=== PATIENT | female | born 1975 | race Hispanic/Latino ===

== ENCOUNTER 2023-08-10 10:15 | Emergency (ER) | payer BC, MEDICARE, OTHER ==
[~2023-08-10] VITALS: Ht 154.9 cm; Wt 77.1 kg
[2023-08-10 10:29] VITALS: BP 125/76; PULSE 78; RESP 18
[2023-08-10] MEDS ORDERED: IBUP-2077 PO (12:17)
== END 2023-08-10 12:45 | disposition home or self-care (01) ==
LOC: EDH 10:15
DX: S66.811A Strain of other specified muscles, fascia and tendons at wrist and hand level, right hand, initial encounter (principal); Z90.710 Acquired absence of both cervix and uterus; Z98.890 Other specified postprocedural states; X58.XXXA Exposure to other specified factors, initial encounter; Y93.89 Activity, other specified; Y92.89 Other specified places as the place of occurrence of the external cause; Y99.8 Other external cause status
CPT/HCPCS: 99282

== ENCOUNTER 2024-06-27 12:07 | Emergency (ER) | payer BC, OTHER ==
[~2024-06-27] VITALS: Ht 154.9 cm; Wt 65.8 kg
[~2024-06-27 12:07] MED LIST: IBUP-2077 PO
[2024-06-27 14:15] LABS: APPEARANCE,URINE CLOUDY (CLEAR); BILIRUBIN,URINE NEGATIVE (NEGATIVE); COLOR,URINE YELLOW (YELLOW); GLUCOSE, URINE (UA) NEGATIVE (NEGATIVE); KETONES,URINE NEGATIVE (NEGATIVE); LEUKOCYTE ESTERASE ,URINE 500 Leu/uL (NEGATIVE); NITRATE,URINE 2+ (NEGATIVE); OCCULT BLOOD,URINE SMALL (NEGATIVE); PROTEIN,URINE 20 mg/dL (NEGATIVE); UROBILINOGEN,URINE 0.2 mg/dL (0.2-1.0)
[2024-06-27 14:20] LABS: ADD UA MICROSCOPIC YES
[2024-06-27 14:22] LABS: BACTERIA,URINE RARE /HPF (None Seen); MUCUS,URINE RARE LPF (None Seen); SQUAMOUS EPITHELIAL CELL,UR FEW /HPF (0-2); WBC,URINE 26-50 /HPF (0-1)
[2024-06-27] MEDS: cefTRIAXone 1G VIAL IM ONE (14:58)
--- NOTE | 2024-06-27 15:42 | HMCIMG ---
HIP UNILAT 4VW RIGHT REASON: hip pain. COMPARISON: None TECHNIQUE: 3 images of right hip were obtained. FINDINGS: Degenerative changes are seen. There is no acute displaced fracture or dislocation. IMPRESSION: Findings as described above.
--- NOTE | 2024-06-27 15:50 | ERN ---
General Chief Complaint: Painful Urination Stated Complaint: PAINFUL URINATION Time Seen by MD: 12:12 Time Seen by Midlevel: 12:12 Source: patient History of Present Illness Initial Comments Patient is a 48-year-old female with no significant past medical history presenting with two complaints. Patient states her primary concern is her right hip pain that has been ongoing for the last couple of weeks. Patient believes she may have strained it at work. Proximally two weeks ago she sustained a mechanical ground level fall and was evaluated at a local urgent care who discharged home without any imaging done. Since then her pain has continued to increase to the point where she is unable to walk. Her 2nd concern is that she may have a urinary tract infection. She has been having dysuria since yesterday. She specifically denies any nausea, vomiting, fever, chills, or any other symptoms at this time. Allergies: Coded Allergies: No Known Drug Allergies (Unverified Allergy, Unknown, 08/10/23) Home Meds Active Scripts Methocarbamol (Robaxin) 750 Mg Tab, 750 MG PO BID for 5 Days, #10 TAB Prov:FILIBERTO BARRAGAN 06/27/24 Nitrofurantoin/Nitrofuran Mac (Macrobid) 100 Mg Cap, 100 MG PO BID for 5 Days, #10 CAP Prov:FILIBERTO BARRAGAN 06/27/24 Ketorolac Tromethamine (Ketorolac Tromethamine) 10 Mg Tablet, 10 MG PO BID for 5 Days, #10 TAB Prov:FILIBERTO BARRAGAN 06/27/24 Ibuprofen (Ibuprofen 800 mg Tab) 800 Mg Tab, 800 MG PO TID PRN for PAIN, #30 TAB Prov:CHRISTIANO TRAVIS Jr.P 08/10/23 Past Medical History Past Medical History: No Pertinent History Past Surgical History: Surgical History Other: SPINAL SURGERY Family History Family History: DM, HTN Social History Social History: ETOH, Lives with family Female( History) History: Not Applicable ROS Dictation CONSTITUTIONAL: Negative except for HPI HEAD/FACE: Negative except for HPI EENT: Negative except for HPI RESPIRATORY: Negative except for HPI GASTROINTESTINAL/ABDOMINAL: Negative except for HPI GENITOURINARY: Negative except for HPI MUSCULOSKELETAL: Negative except for HPI INTEGUMENTARY: Negative except for HPI NEUROLOGICAL/PSYCH: Negative except for HPI HEMATOLOGIC/LYMPHATIC: Negative except for HPI All Systems Negative, Except as noted above. 13 point review of systems assessed and all negative except for above. Physical Exam Physical Exam Dictation Vital Signs reviewed General Appearance: Alert, oriented x 3, no acute distress, well developed, nourished. Head and Face: non-traumatic. Eyes: PERRL, pink conjunctivas, eyelid no trauma, anterior chamber with arcus senilis. Ears: Pinnas intact and no signs of trauma or erythema ear canals clear and no discharge TM no erythema Nose: No discharge, no bleeding. Oropharynx: Mouth normal, tongue pink, pharynx clear,no erythema, tonsils no exudates, no abscesses noted, mucous membrane moist Neck: Supple, non-tender, no thyromegaly, no masses, no JVD, no bruits Breast:Deferred Chest:No tenderness, no crepitus, no paradoxical movement, no retractions Lungs:Clear, well-ventilated, symmetric, no rales, no wheezing, no rhonchi, no stridor, good breath sounds bilaterally Heart: Regular rate, regular rhythm, no murmur, no gallops Vascular: no peripheral edema, Abdomen: Soft, positive bowel sounds, nondistended, no guarding, nontender, no rebound, no masses no hepatomegaly, no splenomegaly, no Etienne's sign, no hernias. Rectal: Deferred Genital: Deferred Neurological: Normal speech, motor function intact, sensory function intact Musculoskeletal: Neck nontender, full range of motion, back nontender, full range of motion, Extremities: Mild tenderness over the right lateral hip, patient has full range motion of the right hip, right lower extremity is neurovascularly intact. Skin: Color pink, dry, no turgor, no rash, no lacerations, no abrasions, no co ntusions. Lymphatic: Deferred Results Laboratory and Microbiology Lab and Micro Result Laboratory Tests Test 06/27/24 13:52 Urine Color YELLOW (YELLOW) Urine Appearance CLOUDY (CLEAR) H Urine pH 5.0 (5.0-8.0) Urine Specific [place] 1.024 (1.001-1.031) Urine Protein 20 mg/dL (NEGATIVE) H Urine Glucose (UA) NEGATIVE mg/dL (NEGATIVE) Urine Ketones NEGATIVE mg/dL (NEGATIVE) Urine Occult Blood SMALL (NEGATIVE) H Urine Nitrate 2+ (NEGATIVE) H Urine Bilirubin NEGATIVE mg/dL (NEGATIVE) Urine Urobilinogen 0.2 mg/dL (0.2-1.0) Urine Leukocyte Esterase 500 Henrik/uL (NEGATIVE) H Urine RBC 6-10 /HPF (0-1) H Urine WBC 26-50 /HPF (0-1) H Urine Squamous Epithelial Cells FEW /HPF (0-2) Urine Bacteria RARE /HPF (None Seen) Labs Reviewed?: Yes MDM MDM: Differential diagnosis: Hip fracture, hip contusion, urinary tract infection There are no social concerns with this patient. Prescription drug management Prescriptions will include: Robaxin, ketorolac, and Macrobid Medical management and examination interpretation discussions were had by me with other qualified healthcare professionals as indicated for the patient's care. ED Course Orders Procedure Category Date Status Time Urinalysis Profile LAB 06/27/24 Complete 12:17 Culture Urine SEPIDEH 06/27/24 In Process 14:20 Ceftriaxone 1g Vial PHA 06/27/24 Complete (Rocephine 1g Inj) 15:00 Orphenadrine Citrate PHA 06/27/24 Complete (Norflex) 15:30 Ketorolac PHA 06/27/24 Complete Tromethamine 30mg/Ml 15:30 Hip Unilat 4vw Right RAD 06/27/24 Resulted 15:04 Current Medications Medications (Trade) Dose Ordered Sig/Kelly Route PRN Reason Start Time Stop Time Status Last Admin Dose Admin Ceftriaxone Sodium (ROCEphine 1G INJ) 1 gm ONCE ONCE IM 06/27/24 15:00 06/27/24 15:01 DC 06/27/24 14:58 Ketorolac Tromethamine (toRADol) 30 mg ONCE ONCE IM 06/27/24 15:30 06/27/24 15:31 DC 06/27/24 16:05 Orphenadrine Citrate (Norflex) 60 mg ONCE ONCE IM 06/27/24 15:30 06/27/24 15:31 DC 06/27/24 16:04 Vital Signs Date Time Temp Pulse Resp B/P (MAP) Pulse Ox O2 Delivery O2 Flow Rate FiO2 06/27/24 16:06 97.9 65 18 128/68 99 Room Air* 0 21 06/27/24 14:35 97.9 68 18 135/72 99 Room Air* 0 21 06/27/24 12:40 97.0 68 18 140/76 99 Room Air DX & DISP Disposition: Discharge Departure Impression: Primary Impression: Right hip pain Additional Impression: Urinary tract infection Condition: Stable Scripts Methocarbamol (Robaxin) 750 Mg Tab 750 MG PO BID for 5 Days, #10 TAB Prov: FILIBERTO BARRAGAN 06/27/24 Nitrofurantoin/Nitrofuran Mac (Macrobid) 100 Mg Cap 100 MG PO BID for 5 Days, #10 CAP Prov: FILIBERTO BARRAGAN 06/27/24 Ketorolac Tromethamine (Ketorolac Tromethamine) 10 Mg Tablet 10 MG PO BID for 5 Days, #10 TAB Prov: FILIBERTO BARRAGAN 06/27/24 Additional Instructions: Your right hip x-ray is negative for any acute fracture. Have given you a follow up to an orthopedic surgeon for possible outpatient MRI. Your urine is consistent with infection. I have prescribed you Macrobid. Please take your antibiotics as prescribed. I am also sending you home with a prescription for Robaxin which is a muscle relaxer and Toradol for pain. Follow up with your PCP in 2-3 days for repeat evaluation. Return to the ER for any new or worsening symptoms Referrals: SELF,REFERRAL (PCP) GUILLERMO FLORES MD Time of Disposition: 15:52 I have reviewed the case, and I agree with, Diagnosis and Plan I performed the substantive portion of the visit. I have reviewed and personally made and approve the management plan that is documented in the note by myself or the FIDELINA. I acknowledge for responsibility for the patient's management plan. FILIBERTO BARRAGAN Jun 27, 2024 15:50
[2024-06-27] MEDS ORDERED: METH-662 PO (15:55)
[2024-06-27] MEDS ORDERED: KETO10TA2 PO (15:55)
[2024-06-27] MEDS ORDERED: MACR100 PO (15:55)
[2024-06-27] MEDS: ORPHENADRINE 60MG/2ML IM ONE (16:04)
[2024-06-27] MEDS: ketOROlac 30MG VIAL (30MG/ML) IM ONE (16:05)
[2024-06-27 16:06] VITALS: BP 128/68; PULSE 65; RESP 18; TEMP 97.9; O2SAT 99
== END 2024-06-27 16:13 | disposition home or self-care (01) ==
LOC: EDH 12:07
DX: M25.551 Pain in right hip (principal); N39.0 Urinary tract infection, site not specified; Z79.899 Other long term (current) drug therapy; Z98.890 Other specified postprocedural states
CPT/HCPCS: 99284; 87086 ×2; 87186; 81001; 73503; 96372 ×3; J0696; J1885; J2360

== ENCOUNTER 2024-07-25 18:44 | Emergency (ER) | payer BC ==
[~2024-07-25] VITALS: Ht 154.9 cm; Wt 65.8 kg
[~2024-07-25 18:44] MED LIST changes: +KETO10TA2 PO; +MACR100 PO; +METH-662 PO
[2024-07-25] MEDS ORDERED: FAMC500T8 PO (18:50)
[2024-07-25 18:51] VITALS: BP 117/73; PULSE 91; RESP 16; TEMP 98.6; O2SAT 97
--- NOTE | 2024-07-25 18:51 | ERN ---
ED Note History of Present Illness Stated Complaint: HPV Chief Complaint: Other Problems Time Seen by MD: 18:46 Dictation: PATIENT IS A 48-YEAR-OLD FEMALE COMING IN TODAY WITH COMPLAINTS OF BURNING PERINEAL AREA AND LESION SHE HAS HAD FOR SEVERAL DAYS. SHE STATES SHE HAS A HISTORY OF GENITAL HERPES HOWEVER RAN OUT OF HER AND AND DOES NOT HAVE A LOCAL DOCTOR. NO FEVER NO CHILLS NO NAUSEA VOMITING. STATES HER PARTNER HAS A SAME DIAGNOSES. Allergies: Coded Allergies: No Known Drug Allergies (Unverified Allergy, Unknown, 08/10/23) Home Meds Active Scripts Famciclovir (Famciclovir) 500 Mg Tablet, 500 MG PO TID for 7 Days, #21 TAB Prov:MICHAEL DIAZ BOLT MACHINE OPERATOR 07/25/24 Methocarbamol (Robaxin) 750 Mg Tab, 750 MG PO BID for 5 Days, #10 TAB Prov:FILIBERTO BARRAGAN 06/27/24 Nitrofurantoin/Nitrofuran Mac (Macrobid) 100 Mg Cap, 100 MG PO BID for 5 Days, #10 CAP Prov:FILIBERTO BARRAGAN 06/27/24 Ketorolac Tromethamine (Ketorolac Tromethamine) 10 Mg Tablet, 10 MG PO BID for 5 Days, #10 TAB Prov:FILIBERTO BARRAGAN 06/27/24 Ibuprofen (Ibuprofen 800 mg Tab) 800 Mg Tab, 800 MG PO TID PRN for PAIN, #30 TAB Prov:CHRISTIANO TRAVIS Jr. LOGISTICS COORDINATOR 08/10/23 Past Medical History Past Medical History: No Pertinent History, Other (GENITAL HERPES) Surgical History: Surgical History Other: SPINAL SURGERY Family History: DM, HTN Social History: ETOH, Lives with family History: Not Applicable RN Note Reviewed/Agreed w/PFSH: Yes Review of System Dictation CONSTITUTIONAL: NEGATIVE EXCEPT FOR HPI HEAD/FACE: NEGATIVE EXCEPT FOR HPI EENT: NEGATIVE EXCEPT FOR HPI RESPIRATORY: NEGATIVE EXCEPT FOR HPI GASTROINTESTINAL/ABDOMINAL: NEGATIVE EXCEPT FOR HPI GENITOURINARY: NEGATIVE EXCEPT FOR HPI BURNING LESIONS MUSCULOSKELETAL: NEGATIVE EXCEPT FOR HPI INTEGUMENTARY: NEGATIVE EXCEPT FOR HPI NEUROLOGICAL/PSYCH: NEGATIVE EXCEPT FOR HPI HEMATOLOGIC/LYMPHATIC: NEGATIVE EXCEPT FOR HPI ALL SYSTEMS NEGATIVE, EXCEPT NOTED ABOVE. 13 POINT REVIEW OF SYSTEMS ASSESSED AND ALL NEGATIVE EXCEPT FOR ABOVE. Initial Vital Sign VS Vital Signs Date Time Temp Pulse Resp B/P (MAP) Pulse Ox O2 Delivery O2 Flow Rate FiO2 07/25/24 18:47 98.6 97 16 117/73 97 Room Air 0 07/25/24 18:51 21 Physical Exam Dictation VITAL SIGNS REVIEWED GENERAL APPEARANCE: ALERT, ORIENTED X 3, NO ACUTE DISTRESS, WELL DEVELOPED, NOURISHED. HEAD AND FACE: NON-TRAUMATIC. EYES: PERRL, PINK CONJUNCTIVAS, EYELID NO TRAUMA, ANTERIOR CHAMBER WITH ARCUS SENILIS. EARS: PINNAS INTACT AND NO SIGNS OF TRAUMA OR ERYTHEMA EAR CANALS CLEAR AND NO DISCHARGE TM NO ERYTHEMA NOSE: NO DISCHARGE, NO BLEEDING. OROPHARYNX: MOUTH NORMAL, TONGUE PINK, PHARYNX CLEAR,NO ERYTHEMA, TONSILS NO EXUDATES, NO ABSCESSES NOTED, MUCOUS MEMBRANE MOIST NECK: SUPPLE, NON-TENDER, NO THYROMEGALY, NO MASSES, NO JVD, NO BRUITS BREAST:DEFERRED CHEST:NO TENDERNESS, NO CREPITUS, NO PARADOXICAL MOVEMENT, NO RETRACTIONS LUNGS:CLEAR, WELL-VENTILATED, SYMMETRIC, NO RALES, NO WHEEZING, NO RHONCHI, NO STRIDOR, GOOD BREATH SOUNDS BILATERALLY HEART: REGULAR RATE, REGULAR RHYTHM, NO MURMUR, NO GALLOPS VASCULAR: NO PERIPHERAL EDEMA, ABDOMEN: SOFT, POSITIVE BOWEL SOUNDS, NONDISTENDED, NO GUARDING, NONTENDER, NO REBOUND, NO MASSES NO HEPATOMEGALY, NO SPLENOMEGALY, NO DOTY'S SIGN, NO HERNIAS. RECTAL: DEFERRED GENITAL: DEFERRED EXAMINATION DEFERRED WE WILL TREAT PATIENT EMPIRICALLY PACED ON HER HISTORY AND HER EMPTY PILL BOTTLE NEUROLOGICAL: NORMAL SPEECH, MOTOR FUNCTION INTACT, SENSORY FUNCTION INTACT MUSCULOSKELETAL: NECK NONTENDER, FULL RANGE OF MOTION, BACK NONTENDER, FULL RANGE OF MOTION, EXTREMITIES: NONTENDER, FULL RANGE OF MOTION SKIN: COLOR PINK, DRY, NO TURGOR, NO RASH, NO LACERATIONS, NO ABRASIONS, NO CONTUSIONS. LYMPHATIC: DEFERRED Results (Laboratory/Radiology) Labs Reviewed?: Yes ED Course ED Course Vital Signs Date Time Temp Pulse Resp B/P (MAP) Pulse Ox O2 Delivery O2 Flow Rate FiO2 07/25/24 18:51 98.6 91 16 117/73 97 Room Air* 0 21 07/25/24 18:47 98.6 97 16 117/73 97 Room Air 0 EIGHTEEN 50, NO LABS OR X-RAYS INDICATED. WE WILL TREAT PATIENT EMPIRICALLY FOR ACUTE GENITAL HERPES FLARE Medical Decision Making MDM MEDICAL DISCHARGE MAKING BASED ON EMPIRIC TREATMENT FOR GENITAL HERPES WE WILL BE PRESCRIBED FAMCICLOVIR GIVEN A LIST OF LOCAL DOCTORS TO FOLLOW UP. DX & DISP Disposition: Discharge Departure Impression: Primary Impression: Genital herpes Additional Impression: Encounter for medication refill Condition: Stable Scripts Famciclovir (Famciclovir) 500 Mg Tablet 500 MG PO TID for 7 Days, #21 TAB Prov: MICHAEL DIAZ BOLT MACHINE OPERATOR 07/25/24 Additional Instructions: FOLLOW-UP WITH PRIMARY CARE PROVIDER IN 1 TO 2 DAYS. TAKE MEDICATIONS DIRECTED HERE IN THE EMERGENCY ROOM. OKAY TO CONTINUE HOME MEDICATIONS UNLESS OTHERWISE DISCUSSED DURING YOUR VISIT IN THE EMERGENCY ROOM TODAY. RETURN TO YOUR NEAREST EMERGENCY ROOM IF SYMPTOMS WORSEN OR IF THERE IS NO IMPROVEMENT. CALL 911 IF YOU NEED IMMEDIATE ASSISTANCE. TAKE TYLENOL OR MOTRIN [id number] NEEDED AND IF NO CONTRAINDICATIONS ARE PRESENT. INCREASE ORAL HYDRATION. A WOUND CULTURE OR URINE CULTURE WAS ORDERED HERE IN THE EMERGENCY ROOM DEPARTMENT PLEASE FOLLOW-UP WITH PRIMARY CARE PROVIDER AND ADVISE THEM TO GET REPEAT PORTS FROM OUR FACILITY. IF YOU HAD ANY MIKAEL WRAP/SPLINTS THAT WERE APPLIED HERE, PLEASE DO NOT REMOVE THEM UNTIL YOU SEE YOUR PRIMARY CARE OR SPECIALTY. TAKE FAMCICLOVIR DIRECTED UNTIL GONE. , FOLLOW UP WITH YOUR DOCTOR OR ONE OF THE DOCTORS ON THE LIST PROVIDED YOU IN THE NEXT 2-3 DAYS. Referrals: SELF,REFERRAL (PCP) Time of Disposition: 18:49 I have reviewed the case, and I agree with, Diagnosis and Plan ATTESTATION BY PHYSICIAN I PERFORMED THE SUBSTANTIVE PORTION OF THE VISIT. I HAVE REVIEWED AND PERSONALLY MADE AND APPROVED THE MANAGEMENT PLAN THAT IS DOCUMENTED IN THE NOTE BY MYSELF FOR THE A PP. I ACKNOWLEDGED FOR RESPONSIBILITY FOR THE PATIENT'S MANAGEMENT PLAN. MICHAEL DIAZ NP Jul 25, 2024 18:51 MELLY SILVA MD Jul 27, 2024 18:53
== END 2024-07-25 19:11 | disposition home or self-care (01) ==
LOC: EDH 18:44
DX: A60.09 Herpesviral infection of other urogenital tract (principal); Z76.0 Encounter for issue of repeat prescription; Z79.624 Long term (current) use of inhibitors of nucleotide synthesis
CPT/HCPCS: 99281

== ENCOUNTER 2024-07-30 23:00 | Emergency (ER) | payer BC ==
[~2024-07-30] VITALS: Ht 154.9 cm; Wt 66.7 kg
[~2024-07-30 23:00] MED LIST changes: +FAMC500T8 PO
--- NOTE | 2024-07-30 23:02 | NUR ---
UA CUP PROVIDED
[2024-07-30 23:37] LABS: APPEARANCE,URINE CLOUDY (CLEAR); BILIRUBIN,URINE NEGATIVE (NEGATIVE); COLOR,URINE YELLOW (YELLOW); GLUCOSE, URINE (UA) NEGATIVE (NEGATIVE); KETONES,URINE NEGATIVE (NEGATIVE); LEUKOCYTE ESTERASE ,URINE 500 Leu/uL (NEGATIVE); NITRATE,URINE NEGATIVE (NEGATIVE); OCCULT BLOOD,URINE SMALL (NEGATIVE); PH,URINE 5.5 (5.0-8.0); PROTEIN,URINE 70 mg/dL (NEGATIVE); UROBILINOGEN,URINE 0.2 mg/dL (0.2-1.0)
[2024-07-30 23:41] LABS: ADD UA MICROSCOPIC YES
[2024-07-30 23:42] LABS: MUCUS,URINE RARE LPF (None Seen); RBC,URINE 26-50 /HPF (0-1); SQUAMOUS EPITHELIAL CELL,UR MOD /HPF (0-2); WBC,URINE TNTC /HPF (0-1)
[2024-07-30] MEDS ORDERED: NITR100C4 PO (23:51)
[2024-07-30] MEDS ORDERED: VALA500T42 PO (23:51)
--- NOTE | 2024-07-30 23:52 | ERN ---
ED Note History of Present Illness Stated Complaint: BURNING WITH URINATION, HERPES " FLARE" Chief Complaint: Multiple Complaints Time Seen by MD: 23:09 Time Seen by Midlevel: 23:09 Dictation: Patient is a 48-year-old female with a history of genital herpes, who presents to the emergency department with complaints of burning urination onset two days ago, patient also reports she is having a herpes flare-up. Patient has a history of general herpes and states her flare ups usually treated with a valacyclovir. Patient denies any vaginal bleeding or discharge. Denies any fevers. Allergies: Coded Allergies: No Known Drug Allergies (Unverified Allergy, Unknown, 08/10/23) Home Meds Active Scripts Cephalexin Monohydrate (Keflex) 500 Mg Cap, 500 MG PO BID for 7 Days, #28 CAP Prov:DOUGLAS GONSALEZ [facility] 07/31/24 Valacyclovir HCl (Valacyclovir) 500 Mg Tablet, 500 MG PO BID for 3 Days, #6 TAB Prov:DOUGLAS GONSALEZ [facility] 07/30/24 Famciclovir (Famciclovir) 500 Mg Tablet, 500 MG PO TID for 7 Days, #21 TAB Prov:MICHAEL DIAZ NP 07/25/24 Methocarbamol (Robaxin) 750 Mg Tab, 750 MG PO BID for 5 Days, #10 TAB Prov:FILIBERTO BARRAGAN 06/27/24 Nitrofurantoin/Nitrofuran Mac (Macrobid) 100 Mg Cap, 100 MG PO BID for 5 Days, #10 CAP Prov:FILIBERTO BARRAGAN 06/27/24 Ketorolac Tromethamine (Ketorolac Tromethamine) 10 Mg Tablet, 10 MG PO BID for 5 Days, #10 TAB Prov:FILIBERTO BARRAGAN 06/27/24 Ibuprofen (Ibuprofen 800 mg Tab) 800 Mg Tab, 800 MG PO TID PRN for PAIN, #30 TAB Prov:CHRISTIANO TRAVIS Jr. [facility] 08/10/23 Discontinued Scripts Nitrofurantoin Monohyd/M-Cryst (Macrobid 100 mg Capsule) 100 Mg Capsule, 1 CAP PO BID for 5 Days, #10 CAP 0 Refills Prov:DOUGLAS GONSALEZ [facility] 07/30/24 Past Medical History Past Medical History: Other Additional Past Medical Hx: HPV Surgical History: Hysterectomy, Surgical History Other: SPINAL SURGERY Family History: DM, HTN Social History: ETOH, Lives with family History: Not Applicable RN Note Reviewed/Agreed w/PFSH: Yes Review of System Dictation Constitutional: Negative for fever,chills, and weight loss Eyes: Negative for injury, pain,redness, and discharge ENT: Negative for injury,pain or swelling Cardiovascular: Negative for chest pain, palpitations, and edema Respiratory: Negative for shortness of breath, cough, and wheezing, Abdomen/GI: Negative for abdominal pain, nausea, vomiting, diarrhea, and constipation Back: Negative for injury and pain : Positive for burning urination MS/Extremity: Negative for injury and deformity Skin: Negative for rash, and discoloration Neuro: Negative for headache, weakness, numbness, tingling, and seizure Psych: Negative for suicide ideation, homicidal ideation, and hallucinations Initial Vital Sign VS Vital Signs Date Time Temp Pulse Resp B/P (MAP) Pulse Ox O2 Delivery O2 Flow Rate FiO2 07/30/24 23:02 97.9 82 16 128/84 100 Room Air 07/31/24 00:05 0 21 Physical Exam Dictation Vital Signs reviewed General Appearance: Alert, oriented x 3, no acute distress, well developed, nourished. Head and Face: non-traumatic. Eyes: PERRL, pink conjunctivas, eyelid no trauma, anterior chamber with arcus senilis. Ears: Pinnas intact and no signs of trauma or erythema ear canals clear and no discharge TM no erythema Nose: No discharge, no bleeding. Oropharynx: Mouth normal, tongue pink. pharynx clear,no erythema, tonsils no exudates, no abscesses noted, mucous membrane moist Neck: Supple, non-tender, no thyromegaly, no masses, no JVD, no bruits Breast:Deferred Chest:No tenderness, no crepitus, no paradoxical movement, no retractions Lungs:Clear, well-ventilated, symmetric, no rales, no wheezing, no rhonchi, no stridor, good breath sounds bilaterally Heart: Regular rate, regular rhythm, no murmur, no gallops Vascular: no peripheral edema, Abdomen: Soft, positive bowel sounds, nondistended, no guarding, nontender, no rebound, no masses no hepatomegaly, no splenomegaly, no Etienne's sign, no hernias. Rectal: Deferred Genital: Deferred Neurological: Normal speech, motor function intact, sensory function intact Musculoskeletal: Neck nontender, full range of motion, back nontender, full range of motion, Extremities: nontender, full range of motion Skin: Color pink, dry, no turgor, no rash, no lacerations, no abrasions, no contusions. Lymphatic: Deferred Results (Laboratory/Radiology) Laboratory/Radiology Laboratory Tests Test 07/30/24 23:19 Urine Color YELLOW (YELLOW) Urine Appearance CLOUDY (CLEAR) H Urine pH 5.5 (5.0-8.0) Urine Specific [place] 1.031 (1.001-1.031) Urine Protein 70 mg/dL (NEGATIVE) H Urine Glucose (UA) NEGATIVE mg/dL (NEGATIVE) Urine Ketones NEGATIVE mg/dL (NEGATIVE) Urine Occult Blood SMALL (NEGATIVE) H Urine Nitrate NEGATIVE (NEGATIVE) Urine Bilirubin NEGATIVE mg/dL (NEGATIVE) Urine Urobilinogen 0.2 mg/dL (0.2-1.0) Urine Leukocyte Esterase 500 Henrik/uL (NEGATIVE) H Urine RBC 26-50 /HPF (0-1) H Urine WBC TNTC /HPF (0-1) H Urine Squamous Epithelial Cells MOD /HPF (0-2) Urine Bacteria None /HPF (None Seen) Labs Reviewed?: Yes ED Course ED Course Orders Procedure Category Date Status Time Urinalysis Profile LAB 07/30/24 Complete 23:03 Culture Urine SEPIDEH 07/30/24 In Process 23:41 Ceftriaxone 1g Vial PHA 07/31/24 Complete (Rocephine 1g Inj) 00:00 Current Medications Medications (Trade) Dose Ordered Sig/Kelly Route PRN Reason Start Time Stop Time Status Last Admin Dose Admin Ceftriaxone Sodium (ROCEphine 1G INJ) 1 gm ONCE ONCE IM 07/31/24 00:00 07/31/24 00:01 DC 07/31/24 00:01 Vital Signs Date Time Temp Pulse Resp B/P (MAP) Pulse Ox O2 Delivery O2 Flow Rate FiO2 07/31/24 00:05 98.6 78 18 125/72 99 Room Air* 0 21 07/30/24 23:02 97.9 82 16 128/84 100 Room Air Medical Decision Making MDM Patient is a 48-year-old female with a history of genital herpes, who presents to the emergency department with complaints of burning urination onset two days ago, patient also reports she is having a herpes flare-up. Patient has a history of general herpes and states her flare ups usually treated with a valacyclovir. Patient denies any vaginal bleeding or discharge. Denies any fevers. Patient with positive leukocyte esterase. Will be treated with the antibiotics, patient will be giving valacyclovir for her treatment of herpes. Differential diagnosis: UTI, herpes, dysuria Need for hospitalization: Patient does not meet criteria for hospitalization. There are no social concerns with this patient. DX & DISP Disposition: Discharge Departure Impression: Primary Impression: Urinary tract infection Additional Impression: Genital herpes Condition: Stable Scripts Cephalexin Monohydrate (Keflex) 500 Mg Cap 500 MG PO BID for 7 Days, #28 CAP Prov: DOUGLAS GONSALEZ [employer] CR[employer] OPERATOR 07/31/24 Valacyclovir HCl (Valacyclovir) 500 Mg Tablet 500 MG PO BID for 3 Days, #6 TAB Prov: DOUGLAS OGNSALEZP 07/30/24 Additional Instructions: Please take medications as prescribed. Please follow up primary doctor in 1-2 days FOLLOW-UP WITH PRIMARY CARE PROVIDER IN 1 TO 2 DAYS. TAKE MEDICATIONS DIRECTED HERE IN THE EMERGENCY ROOM. OKAY TO CONTINUE HOME MEDICATIONS UNLESS OTHERWISE DISCUSSED DURING YOUR VISIT IN THE EMERGENCY ROOM TODAY. RETURN TO YOUR NEAREST EMERGENCY ROOM IF SYMPTOMS WORSEN OR IF THERE IS NO IMPROVEMENT. CALL 911 IF YOU NEED IMMEDIATE ASSISTANCE. TAKE TYLENOL OR MOTRIN [id number] NEEDED AND IF NO CONTRAINDICATIONS ARE PRESENT. INCREASE ORAL HYDRATION. A WOUND CULTURE OR URINE CULTURE WAS ORDERED HERE IN THE EMERGENCY ROOM DEPARTMENT PLEASE FOLLOW-UP WITH PRIMARY CARE PROVIDER AND ADVISE THEM TO GET REPEAT PORTS FROM OUR FACILITY. IF YOU HAD ANY MIKAEL WRAP/SPLINTS THAT WERE APPLIED HERE, PLEASE DO NOT REMOVE THEM UNTIL YOU SEE YOUR PRIMARY CARE OR SPECIALTY. Referrals: SELF,REFERRAL (PCP) Time of Disposition: 23:49 I have reviewed the case, and I agree with, Diagnosis and Plan DOUGLAS GONSALEZ Jul 30, 2024 23:52
[2024-07-31] MEDS: cefTRIAXone 1G VIAL IM ONE (00:01)
[2024-07-31 00:05] VITALS: BP 125/72; PULSE 78; RESP 18; TEMP 98.6; O2SAT 99
[2024-07-31] MEDS ORDERED: CEPH500B PO (00:08)
== END 2024-07-31 00:13 | disposition home or self-care (01) ==
LOC: EDH 23:00
DX: N39.0 Urinary tract infection, site not specified (principal); A60.00 Herpesviral infection of urogenital system, unspecified; Z79.624 Long term (current) use of inhibitors of nucleotide synthesis; Z79.899 Other long term (current) drug therapy; Z90.710 Acquired absence of both cervix and uterus; Z98.890 Other specified postprocedural states
CPT/HCPCS: 99284; 87086 ×2; 87186; 81001; 96372; J0696

== ENCOUNTER 2024-12-01 12:55 | Emergency (ER) | payer SELFPAY ==
[~2024-12-01] VITALS: Ht 154.9 cm; Wt 72.6 kg
[~2024-12-01 12:55] MED LIST changes: +CEPH500B PO; +VALA500T42 PO
[2024-12-01 13:02] VITALS: BP 154/96; PULSE 96; RESP 16; TEMP 98.1
--- NOTE | 2024-12-01 13:27 | ERN ---
ED Note History of Present Illness Stated Complaint: ABD PAIN, DISCOLORATION SPOT ON STOMACH Chief Complaint: Multiple Complaints Time Seen by MD: 12:57 Dictation: PATIENT IS A 49-YEAR-OLD FEMALE WITH TWO COMPLAINTS 1ST COMPLAINT IS SHE HAS A PAINFUL DISCRETE RASH TO HER ANTERIOR ABDOMINAL WALL SHE HAS HAD FOR SEVERAL DAYS SHE SAID IT HURTS WHEN SHE LAYS ON IT, SHE IS A STOMACH SLEEPER. SHE STATES SHE HAS ALSO HAD CHILLS. SHE DOES STATE SHE HAS A HISTORY OF EXPOSURE TO SHINGLES AND HERPES. SECOND COMPLAINT IS SHE IS HAVING SOME DYSURIA SHE HAS HAD FOR 2-3 DAYS WITH A HISTORY OF URINARY TRACT INFECTIONS TO NO NAUSEA VOMITING NO FLANK PAIN. HE HAS NOT BEEN TO SEE HER PRIMARY CARE DOCTOR. Allergies: Coded Allergies: No Known Drug Allergies (Unverified Allergy, Unknown, 08/10/23) Home Meds Active Scripts Cephalexin Monohydrate (Keflex) 500 Mg Cap, 500 MG PO BID for 7 Days, #28 CAP Prov:DOUGLAS GONSALEZ [facility] 07/31/24 Valacyclovir HCl (Valacyclovir) 500 Mg Tablet, 500 MG PO BID for 3 Days, #6 TAB Prov:DOUGLAS GONSALEZ [facility] 07/30/24 Famciclovir (Famciclovir) 500 Mg Tablet, 500 MG PO TID for 7 Days, #21 TAB Prov:MICHAEL DIAZ NP 07/25/24 Methocarbamol (Robaxin) 750 Mg Tab, 750 MG PO BID for 5 Days, #10 TAB Prov:FILIBERTO BARRAGAN 06/27/24 Nitrofurantoin/Nitrofuran Mac (Macrobid) 100 Mg Cap, 100 MG PO BID for 5 Days, #10 CAP Prov:FILIBERTO BARRAGAN 06/27/24 Ketorolac Tromethamine (Ketorolac Tromethamine) 10 Mg Tablet, 10 MG PO BID for 5 Days, #10 TAB Prov:FILIBERTO BARRAGAN 06/27/24 Ibuprofen (Ibuprofen 800 mg Tab) 800 Mg Tab, 800 MG PO TID PRN for PAIN, #30 TAB Prov:CHRISTIANO TRAVIS Jr. [facility] 08/10/23 Past Medical History Past Medical History: Other Additional Past Medical Hx: HPV Surgical History: Hysterectomy, Surgical History Other: SPINAL SURGERY Family History: DM, HTN Social History: ETOH, Lives with family History: Not Applicable RN Note Reviewed/Agreed w/PFSH: Yes Review of System Dictation CONSTITUTIONAL: NEGATIVE EXCEPT FOR HPI HEAD/FACE: NEGATIVE EXCEPT FOR HPI EENT: NEGATIVE EXCEPT FOR HPI RESPIRATORY: NEGATIVE EXCEPT FOR HPI GASTROINTESTINAL/ABDOMINAL: NEGATIVE EXCEPT FOR HPI GENITOURINARY: NEGATIVE EXCEPT FOR HPI DYSURIA MUSCULOSKELETAL: NEGATIVE EXCEPT FOR HPI INTEGUMENTARY: NEGATIVE EXCEPT FOR HPI PAINFUL RASH TO ABDOMEN NEUROLOGICAL/PSYCH: NEGATIVE EXCEPT FOR HPI HEMATOLOGIC/LYMPHATIC: NEGATIVE EXCEPT FOR HPI ALL SYSTEMS NEGATIVE, EXCEPT NOTED ABOVE. 13 POINT REVIEW OF SYSTEMS ASSESSED AND ALL NEGATIVE EXCEPT FOR ABOVE. Initial Vital Sign VS Vital Signs Date Time Temp Pulse Resp B/P (MAP) Pulse Ox O2 Delivery O2 Flow Rate FiO2 12/01/24 13:02 98.1 96 16 154/96 98 Room Air Physical Exam Dictation VITAL SIGNS REVIEWED GENERAL APPEARANCE: ALERT, ORIENTED X 3, NO ACUTE DISTRESS, WELL DEVELOPED, NOURISHED. HEAD AND FACE: NON-TRAUMATIC. EYES: PERRL, PINK CONJUNCTIVAS, EYELID NO TRAUMA, ANTERIOR CHAMBER WITH ARCUS SENILIS. EARS: PINNAS INTACT AND NO SIGNS OF TRAUMA OR ERYTHEMA EAR CANALS CLEAR AND NO DISCHARGE TM NO ERYTHEMA NOSE: NO DISCHARGE, NO BLEEDING. OROPHARYNX: MOUTH NORMAL, TONGUE PINK, PHARYNX CLEAR,NO ERYTHEMA, TONSILS NO EXUDATES, NO ABSCESSES NOTED, MUCOUS MEMBRANE MOIST NECK: SUPPLE, NON-TENDER, NO THYROMEGALY, NO MASSES, NO JVD, NO BRUITS BREAST:DEFERRED CHEST:NO TENDERNESS, NO CREPITUS, NO PARADOXICAL MOVEMENT, NO RETRACTIONS LUNGS:CLEAR, WELL-VENTILATED, SYMMETRIC, NO RALES, NO WHEEZING, NO RHONCHI, NO STRIDOR, GOOD BREATH SOUNDS BILATERALLY HEART: REGULAR RATE, REGULAR RHYTHM, NO MURMUR, NO GALLOPS VASCULAR: NO PERIPHERAL EDEMA, ABDOMEN: SOFT, POSITIVE BOWEL SOUNDS, NONDISTENDED, NO GUARDING, NONTENDER, NO REBOUND, NO MASSES NO HEPATOMEGALY, NO SPLENOMEGALY, NO DOTY'S SIGN, NO HERNIAS. RECTAL: DEFERRED GENITAL: DEFERRED NEUROLOGICAL: NORMAL SPEECH, MOTOR FUNCTION INTACT, SENSORY FUNCTION INTACT MUSCULOSKELETAL: NECK NONTENDER, FULL RANGE OF MOTION, BACK NONTENDER, FULL RANGE OF MOTION, EXTREMITIES: NONTENDER, FULL RANGE OF MOTION SKIN: COLOR PINK, DRY, DISCRETE RASH TO ANTERIOR ABDOMEN CROSSES MIDLINE VESICULAR PAINFUL LYMPHATIC: DEFERRED Results (Laboratory/Radiology) Laboratory/Radiology Laboratory Tests Test 12/01/24 13:25 Urine Color LIGHT-YELLOW (YELLOW) Urine Appearance CLEAR (CLEAR) Urine pH 7.0 (5.0-8.0) Urine Specific [place] 1.020 (1.001-1.031) Urine Protein NEGATIVE mg/dL (NEGATIVE) Urine Glucose (UA) NEGATIVE mg/dL (NEGATIVE) Urine Ketones NEGATIVE mg/dL (NEGATIVE) Urine Occult Blood +- (TRACE) (NEGATIVE) H Urine Nitrate NEGATIVE (NEGATIVE) Urine Bilirubin NEGATIVE mg/dL (NEGATIVE) Urine Urobilinogen 0.2 mg/dL (0.2-1.0) Urine Leukocyte Esterase NEGATIVE Henrik/uL Labs Reviewed?: Yes ED Course ED Course Orders Procedure Category Date Status Time Urinalysis Profile LAB 12/01/24 Complete 13:26 Vital Signs Date Time Temp Pulse Resp B/P (MAP) Pulse Ox O2 Delivery O2 Flow Rate FiO2 12/01/24 13:02 98.1 96 16 154/96 98 Room Air 1532/URINE CLEAR, WE WILL BE DISCHARGE PATIENT HOME WITH HERPES ZOSTER AND BE GIVEN ACYCLOVIR. Medical Decision Making MDM MEDICAL DISCHARGE MAKING BASED ON URINALYSIS AND EMPIRIC TREATMENT FOR HER PEACE VOICE HERS. UA NEGATIVE PATIENT DISCHARGED HOME WITH FAMCICLOVIR AND PREDNISONE TOLD SEE HER PRIMARY CARE DOCTOR DX & DISP Disposition: Discharge Departure Impression: Primary Impression: Herpes zoster Additional Impression: Hematuria Condition: Stable Scripts Acetaminophen with Codeine (Acetaminophen-Cod #3 Tablet) 300 Mg-30 Mg Tablet 1 TAB PO Q4H for MODERATE TO SEVERE PAIN, #12 TAB 0 Refills Prov: MICHAEL DIAZ NP 12/01/24 Prednisone (Prednisone) 20 Mg Tablet 1 TAB PO AD for 6 Days, #14 TAB 0 Refills TAKE 1 TAB BY MOUTH THREE TIMES PER DAY X3 DAYS, THEN TAKE 1 TAB BY MOUTH TWICE A DAY X2 DAYS, THEN TAKE 1 TAB BY MOUTH ONCE A DAY X1 DAY. Prov: MICHAEL DIAZ NP 12/01/24 Famciclovir (Famciclovir) 500 Mg Tablet 500 MG PO TID for 7 Days, #21 TAB Prov: MICHAEL DIAZ [employer] 12/01/24 Additional Instructions: Follow-up with primary care provider in 1 to 2 days. Take medications as directed here in the emergency room. Okay to continue home medications unless otherwise discussed during your visit in the emergency room today. Return to your nearest emergency room if symptoms worsen or if there is no improvement. Call 911 if you need immediate assistance. Take Tylenol or Motrin [id number] as needed and if no contraindications are present. Increase oral hydration. A wound culture or urine culture was ordered here in the emergency room department please follow-up with primary care provider and advise them to get repeat ports from our facility. If you had any Cole wrap/splints that were applied here, please do not remove them until you see your primary care or specialty. Take famciclovir as directed until gone. Take prednisone as directed with food until gone. Take Tylenol with the codeine for severe pain. Keep rash covered and see your primary care doctor for follow up in the next 2-3 days. Referrals: SELF,REFERRAL (PCP) Time of Disposition: 15:34 I have reviewed the case, and I agree with, Diagnosis and Plan MICHAEL DIAZ NP Dec 01, 2024 13:27
[2024-12-01 13:48] LABS: APPEARANCE,URINE CLEAR (CLEAR); BILIRUBIN,URINE NEGATIVE (NEGATIVE); COLOR,URINE LIGHT-YELLOW (YELLOW); GLUCOSE, URINE (UA) NEGATIVE (NEGATIVE); KETONES,URINE NEGATIVE (NEGATIVE); LEUKOCYTE ESTERASE ,URINE NEGATIVE Leu/uL (NEGATIVE); NITRATE,URINE NEGATIVE (NEGATIVE); PROTEIN,URINE NEGATIVE (NEGATIVE); UROBILINOGEN,URINE 0.2 mg/dL (0.2-1.0)
[2024-12-01 13:52] LABS: ADD UA MICROSCOPIC NO
[2024-12-01] MEDS ORDERED: ACET-2079 PO (15:37)
[2024-12-01] MEDS ORDERED: PRED20TA3 PO (15:37)
== END 2024-12-01 15:57 | disposition home or self-care (01) ==
LOC: EDH 12:55
DX: B02.9 Zoster without complications (principal); R31.9 Hematuria, unspecified; Z79.624 Long term (current) use of inhibitors of nucleotide synthesis; Z90.710 Acquired absence of both cervix and uterus
CPT/HCPCS: 81003; 99283